=== PATIENT | female | born 1980 | race Caucasian/White ===

== ENCOUNTER 2018-01-01 20:19 | Outpatient (CLI) | payer MEDICAID | END 2018-01-01 20:20 | disposition home or self-care (01) | LOC: EMS 20:19 | PROVIDERS: ATTEND Surgery | DX: M54.2 Cervicalgia (principal) | CPT/HCPCS: A0425; A0427; A0999 ==

== ENCOUNTER 2018-01-01 20:56 | Emergency (ER) | payer MEDICAID ==
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
[2018-01-02 00:08] VITALS: BP 140/74
== END 2018-01-02 00:18 | disposition short-term general hospital (02) ==
LOC: ED 20:56
DX: Z04.41 Encounter for examination and observation following alleged adult rape (principal); S20.419A Abrasion of unspecified back wall of thorax, initial encounter; S30.0XXA Contusion of lower back and pelvis, initial encounter; X58.XXXA Exposure to other specified factors, initial encounter; E03.9 Hypothyroidism, unspecified; F17.200 Nicotine dependence, unspecified, uncomplicated
CPT/HCPCS: 99283; 99284